=== PATIENT | female | born 1970 | race Caucasian/White ===

== ENCOUNTER 2024-10-15 08:36 | Outpatient (AMB) | payer MEDICAID, SELFPAY ==
--- NOTE | 2024-10-15 08:56 | XR_ITS ---
Examination: Lumbar spine 3 views TECHNIQUE: AP lateral coned lateral lower lumbar spine 3 views Date and time: October 15, 2024 0920 hours INDICATIONS: Lower back pain beginning one year ago. FINDINGS: Minimal anterolisthesis L3 on L4 Moderate to advanced degenerative disc disease L4-L5 No lumbar fracture No spondylolisthesis IMPRESSION: Moderate to advanced degenerative disc disease L4-L5
--- NOTE | 2024-10-15 08:56 | XR_ITS ---
Examination: Bilateral AP knees standing single view Left knee PA lateral axial 3 views TECHNIQUE: Bilateral AP knees standing single view Left knee PA flexion standing, lateral standing, axial right knee 3 views total 4 views Date and time: October 15, 2024 0909 hours INDICATIONS: Right knee pain beginning one year ago FINDINGS: Moderate osteopenia Severe narrowing medial joint space right knee, [id number] Advanced osteoarthritis right patellofemoral joint Significant osteoarthritis lateral joint space Moderate to advanced medial joint space left knee Significant osteoarthritis lateral joint space left knee IMPRESSION: Advanced right knee tricompartment osteoarthritis including severe narrowing medial joint space, [id number]
--- NOTE | 2024-10-15 08:57 | ORTHONT_ITS ---
Vital signs 10/15/24 09:01 Height 1.7 m Height Method Stated Weight 84.113 kg Weight Measurement Method Standing Scale BMI 29.0 BP 125/78 Blood Pressure Source Automatic Cuff Blood Pressure Location Left Upper Arm Position Sitting Respiration 18 Pulse 65 Pulse Source Monitor Temp 98.2 F Temp Source Temporal Artery Scan Pulse Oximetry (%) 98 Oxygen Delivery Method Room Air Med/Allergies Allergies & Medications Allergies No Known Allergies Allergy (Verified 10/15/24 09:03) Medication Reconciliation meloxicam 7.5 mg tablet 7.5 mg PO QDAY #45 tabs 10/15/24 [Rx Confirmed 10/15/24] Exam Exam Breathing is nonlabored. Patient has a normal mood and affect. Bilateral extremities were evaluated and demonstrates sensation intact to light touch. Palpable pedal pulses are present. No significant edema is present. Bilateral hips were examined. The patient has no pain with log roll of the hips. Internal rotation to 30 degrees and external rotation to 30 degrees is painless. Negative FADIR. Left knee was examined today. The left knee is in reasonable alignment. Range of motion from 0-120 degrees. Knee is stable to varus and valgus as well as AP translation with <5mm. Patient has a negative McMurrays. There is no pain with patellofemoral compression and no crepitus noted. The knee is nontender to palpation. The right knee was also examined. The right knee is in varus alignment. Range of motion from 0-115 degrees. Knee is stable to varus and valgus as well as AP translation with <5mm. Patient has a negative McMurrays. There is no pain with patellofemoral compression and no crepitus noted. The knee is tender to palpation medially. Assessment and Plan Problem List (1) Arthritis of knee: Status: Acute Plan: Patient is a pleasant 54-year-old female with right knee pain has been ongoing for quite a while. She has tried over 6 injections in the last about 3 months. She is also tried other conservative treatment. We discussed that the main issue is differentiating from her back pain. We will need to get x-rays of her knee as she has no imaging at all appointment she has tried significant conservative treatment We will see her back after her x-rays are done (2) Spondylolisthesis: Status: Acute Office Procedures GNS Level of Care Nursing/Assessment Patient Status: Initial/New Patient Nursing Assessment/Reassesment: Medication Reconciliation, Update PMH in EMR and Vital Signs Coordination of Care: Complex Care and Chronic Disease 1-5, Education Complex Pt/Fam, Consent,records obtained, informed consent, 1 Ins Authorization, Lab and Imaging orders, Results/Orders obtained and Staff clarify orders Special Needs: Language special needs New Patient Charge New Patient Point Assignment: 1124 New Patient Point Charge: FRONT LINE SUPERVISOR Level 4 ([id number]) MA Intake Visit Data Collection New Patient or Established: New Patient (never been to [facility]) Reason for Visit:: RIGHT KNEE PAIN Seen by Clinical Staff ONLY (RN/MA): No Returns Clerk Required: Yes PCP or OBGYN visit in last 3 months: Yes Hx Now: No Do You Feel Safe at Home: Yes Authorities Contacted: N/A Questionairres Past Medical History Past Medical History Have you ever been diagnosed with any of the following: Respiratory Problems Smoking: No Smoking Exposure: No Subjective Visit Visit for: new patient and knee Immunization / Flu Flu Vaccine in the Last 12 Months: No Flu Vaccine Exclusion Criteria: No Exclusion Criteria History of Present Illness Chief complaint: Right knee pain Date of injury / onset of symptoms: 1 YEAR Patient is a pleasant 54-year-old female with right knee pain has been ongoing for 1 year. The pain starts in the buttocks and radiates down to her foot. There is numbness and tingling. She has a known spondylolisthesis and is post to see a spine physician. She reports that she has had 6 injections in the past as well as Voltaren cream. She has tried Tylenol and ibuprofen. She has not had any physical therapy and has no imaging of her right knee Personal History Occupation: UNEMPLOYED Pain Pain level (0-10): 8 Pain location: inside (medial), outside (lateral), anterior and posterior Pain quality: sharp, dull, aching and burning Pain timing: night, increases with activity and stairs Treatments Number of previous injections: 6 Improvement with previous injections: Yes Number of Physical Therapy sessions: 0 Improvement with PT: No Improvement with NSAIDS: no Review of Systems Review of Systems: All systems negative unless otherwise noted in HPI.
[2024-10-15 09:01] VITALS: BP 125/78; PULSE 65; RESP 18; TEMP 36.8; O2SAT 98; BMI 29.0
== END 2024-10-15 09:07 | disposition home or self-care (01) ==
LOC: HODSRG 08:36
PROVIDERS: PCP Physician Assistant; Referring Provider Physician Assistant; Supervising Provider Orthopaedic Surgery Adult Reconstructive Orthopaedic Surgery; Visit Provider Orthopaedic Surgery Adult Reconstructive Orthopaedic Surgery
DX: M17.11 Unilateral primary osteoarthritis, right knee (principal); M25.561 Pain in right knee; M51.369 Other intervertebral disc degeneration, lumbar region without mention of lumbar back pain or lower extremity pain; R20.0 Anesthesia of skin; R20.2 Paresthesia of skin
CPT/HCPCS: 72100; 73564; 99204; G0463

== ENCOUNTER 2024-12-14 14:17 | Outpatient (AMB) | payer MEDICAID, SELFPAY ==
--- NOTE | 2024-12-14 14:24 | PD.ORTHCLVIS ---
Vital signs 12/14/24 14:27 Height 1.7 m Height Method Stated Weight 82.781 kg Weight Measurement Method Standing Scale BMI 28.6 BP 135/85 H Blood Pressure Source Automatic Cuff Blood Pressure Location Left Upper Arm Position Sitting Respiration 18 Pulse 75 Pulse Source Monitor Temp 98.2 F Temp Source Temporal Artery Scan Pulse Oximetry (%) 98 Oxygen Delivery Method Room Air Med/Allergies Allergies & Medications Allergies No Known Allergies Allergy (Verified 12/14/24 14:27) Medication Reconciliation meloxicam 7.5 mg tablet 7.5 mg PO QDAY #45 tabs 10/15/24 [Rx Confirmed 12/14/24] Exam Exam Breathing is nonlabored. Patient has a normal mood and affect. Bilateral extremities were evaluated and demonstrates sensation intact to light touch. Palpable pedal pulses are present. No significant edema is present. Bilateral hips were examined. The patient has no pain with log roll of the hips. Internal rotation to 30 degrees and external rotation to 30 degrees is painless. Negative FADIR. Left knee was examined today. The left knee is in reasonable alignment. Range of motion from 0-120 degrees. Knee is stable to varus and valgus as well as AP translation with <5mm. Patient has a negative McMurrays. There is no pain with patellofemoral compression and no crepitus noted. The knee is nontender to palpation. The right knee was also examined. The right knee is in varus alignment. Range of motion from 0-115 degrees. Knee is stable to varus and valgus as well as AP translation with <5mm. Patient has a negative McMurrays. There is no pain with patellofemoral compression and no crepitus noted. The knee is tender to palpation medially. X-rays demonstrate [id number] arthritis of the bilateral knees with complete joint space narrowing bilaterally with osteophytes present. This is from September 2023 Assessment and Plan Problem List (1) Arthritis of knee: Status: Acute Plan: ASSESSMENT AND PLAN 1. Bilateral knee osteoarthritis: She has [id number] arthritis in both knees and has undergone over 6 injections without significant relief. She has also tried physical therapy and home exercises. Given the failure of these treatments, a total knee replacement is recommended, starting with the right knee. A comprehensive discussion about the surgery was conducted. The nature and purpose of the total knee replacement, alternative method(s) of treatment, the material risks involved, and the possibility of complications were fully explained to the patient. The patient does NOT have any of the following contraindications to TKA: - Active infection of the knee joint, OR - Active systemic bacteremia, OR - Active skin infection or open wound at surgical site, OR - Neuropathic arthritis, OR - Severe, rapidly progressive neurological disease, OR - Severe medical condition that makes risks of surgery outweigh the potential benefit The patient was told the most common risks and complications associated with a total knee replacement include, but are not limited to: blood clots in the leg, fatal pulmonary embolism, dislocation of the prosthesis, intraoperative and postoperative fractures of the femur or tibia, infection, failure of the prosthesis or grafting materials, complications from anesthesia, reactions to blood transfusions, postoperative leg length inequality, instability of the knee replacement, nerve damage or injury, vascular injury, delayed wound healing, infection, other injury or even . In addition, there are risks associated with anesthesia given during this operation. Also, the patient was told that after undergoing a total knee replacement there may still be persistent pain or disability. The patient was informed that the success of this operation in part depends upon the mechanical devices which are going to be implanted and that these devices can fail or malfunction, and may need to be repaired or replaced and there are no guarantees as to the longevity of this device or its parts and that it or its parts could fail prematurely. The patient was also notified that during the course of surgery, there may be a need to use bone graft from donors, and that any bone graft used will be carefully screened for communicable diseases, including AIDS, hepatitis, Clarke-Creutzfeldt, or other diseases, but despite the screening procedures, there is a small chance that they could contract one of these diseases. Finally, the patient was asked to follow completely and fully with all advice and recommended treatments, and that recovery and ultimate outcome are affected by their compliance with recommended treatment. We discussed the risks, benefits and treatment alternatives, and the patient is interested in proceeding with surgery. We will try to set this up as expeditiously as possible. (2) Spondylolisthesis: Status: Acute Office Procedures GNS Level of Care Nursing/Assessment Patient Status: Established Patient Nursing Assessment/Reassesment: Medication Reconciliation, Update PMH in EMR and Vital Signs Coordination of Care: Complex Care and Chronic Disease 1-5, Education Complex Pt/Fam, Consent,records obtained, informed consent, Results/Orders obtained and Staff clarify orders Established Patient Charge Established Patient Point Assignment: 95 Established Patient Point Charge: EP Level 3 (80-115) MA Intake Visit Data Collection New Patient or Established: Established Patient (seen at [facility] within 3 years) Reason for Visit:: XRAY SPINE/KNEE RESULTS Seen by Clinical Staff ONLY (RN/MA): No [employer] Lease Pumper Required: Yes PCP or OBGYN visit in last 3 months: Yes Hx Now: No Do You Feel Safe at Home: Yes Authorities Contacted: N/A Questionairres Past Medical History Past Medical History Have you ever been diagnosed with any of the following: Respiratory Problems Smoking: No Smoking Exposure: No Subjective Visit Visit for: follow up visit, knee and x-rays Immunization / Flu Flu Vaccine in the Last 12 Months: No Flu Vaccine Exclusion Criteria: No Exclusion Criteria History of Present Illness Chief complaint: Right knee pain Date of injury / onset of symptoms: 1 YEAR HISTORY OF PRESENT ILLNESS I, Monroe Pastor, 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 Patient was informed that recording will be read and reviewed by myself before inclusion in the medical chart. The patient is a 54-year-old female who presents for a follow-up on her right knee pain. She is accompanied by an nonfarm animal caretaker. She reports experiencing pain in both knees, with the right knee being more problematic. Despite undergoing over 6 injections and starting physical therapy, she continues to experience significant discomfort. She has no other medical conditions such as diabetes. Personal History Occupation: UNEMPLOYED Pain Pain level (0-10): 8 Pain location: inside (medial), outside (lateral), anterior and posterior Pain quality: sharp, dull, aching and burning Pain timing: night, increases with activity and stairs Ambulatory data Ambulatory device: none Treatments Number of previous injections: 6 Improvement with previous injections: Yes Number of Physical Therapy sessions: 0 Improvement with PT: No Improvement with NSAIDS: no Review of Systems Review of Systems: All systems negative unless otherwise noted in HPI.
[2024-12-14 14:27] VITALS: BP 135/85; PULSE 75; RESP 18; TEMP 36.8; O2SAT 98; BMI 28.6
== END 2024-12-14 14:45 | disposition home or self-care (01) ==
LOC: HODSRG 14:17
PROVIDERS: PCP Physician Assistant; Referring Provider Physician Assistant; Supervising Provider Orthopaedic Surgery Adult Reconstructive Orthopaedic Surgery; Visit Provider Orthopaedic Surgery Adult Reconstructive Orthopaedic Surgery
DX: M17.0 Bilateral primary osteoarthritis of knee (principal); M43.10 Spondylolisthesis, site unspecified; M25.561 Pain in right knee; M25.562 Pain in left knee
CPT/HCPCS: 99213; G0463